=== PATIENT | female | born 1965 | race Caucasian/White ===

== ENCOUNTER 2017-07-27 20:04 | Emergency (ER) | payer OTHER ==
[~2017-07-27] VITALS: Ht 170.2 cm; Wt 80.3 kg
[2017-07-27] MEDS ORDERED: STELARA45 MG/0.1 (20:35)
[2017-07-27] MEDS ORDERED: Keflex500 MG PO (21:14)
== END 2017-07-27 21:21 | disposition home or self-care (01) ==
LOC: ER 20:04
DX: L03.115 Cellulitis of right lower limb (principal); Z88.5 Allergy status to narcotic agent; Z88.8 Allergy status to other drugs, medicaments and biological substances; Z90.710 Acquired absence of both cervix and uterus
CPT/HCPCS: 99283

== ENCOUNTER → 2021-04-29 | Outpatient (CLI) | payer OTHER ==
[~2021-04-29] MED LIST: Keflex500 MG PO; STELARA45 MG/0.1
== END ==
LOC: LAB SHORT 16:00
DX: J02.9 Acute pharyngitis, unspecified (principal); Z88.6 Allergy status to analgesic agent; Z88.8 Allergy status to other drugs, medicaments and biological substances
CPT/HCPCS: 87081

== ENCOUNTER → 2021-07-01 | Outpatient (CLI) | payer OTHER ==
[~2021-07-01] MED LIST changes: +CYCL10 PO; +Percocet 5-3251 EACH PO; +TALTZ SYRI80 MG/1 ML
[2021-07-02 09:38] LABS: Candida species (DNA Probe) Negative (NEGATIVE); G. vaginalis (DNA Probe) Negative (NEGATIVE); T. vaginalis (DNA Probe) Negative (NEGATIVE)
== END ==
LOC: LAB SHORT 17:19
PROVIDERS: Physician Assistant
DX: R30.0 Dysuria (principal)
CPT/HCPCS: 87086; 87147; 87480; 87510; 87660

== ENCOUNTER 2021-07-20 19:19 | Emergency (ER) | payer OTHER ==
[~2021-07-20] VITALS: Ht 170.2 cm; Wt 80.7 kg
[~2021-07-20 19:19] MED LIST changes: -CYCL10 PO; -Percocet 5-3251 EACH PO; -TALTZ SYRI80 MG/1 ML
[2021-07-20 20:08] LABS: Source, Urine Clean Catch
[2021-07-20 20:27] LABS: Bilirubin, Urine Neg (Neg); Blood, Urine 1+ (Neg); Glucose Qualitative, Urine Neg (Neg); Ketones, Urine Neg (Neg); Leukocyte Esterase, Urine 1+ (Neg); Nitrite, Urine Neg (Neg); Protein, Urine 1+ (Neg); Urobilinogen, Urine NORM (Normal)
[2021-07-20 21:10] LABS: Appearance, Urine Clear (Clear); Color, Urine Yellow (P-Yellow)
[2021-07-20 21:14] LABS: Calcium Oxalate Crystals Many /hpf; Hyaline Casts 0-2 /lpf (0-2)
[2021-07-20 21:15] LABS: Bacteria Mod /hpf; Mucus Light (0-Heavy); Red Blood Cells, Urine 0-2 /hpf (0-2); Squamous Epithelial Cells Few /hpf (Few); White Blood Cells, Urine 0-2 /hpf (0-5)
[2021-07-20] MEDS ORDERED: TALTZ SYRI80 MG/1 ML (21:21)
[2021-07-20] MEDS ORDERED: CYCL10 PO (22:51)
[2021-07-20] MEDS ORDERED: Percocet 5-3251 EACH PO (22:51)
== END 2021-07-20 22:55 | disposition home or self-care (01) ==
LOC: ER 19:19
PROVIDERS: Physician Assistant
DX: M54.50 Low back pain, unspecified (principal)
CPT/HCPCS: 81001; 87086; 99283; A9270

== ENCOUNTER → 2022-07-26 | Outpatient (CLI) | payer OTHER ==
[~2022-07-26] MED LIST changes: +CYCL10 PO; +Percocet 5-3251 EACH PO; +TALTZ SYRI80 MG/1 ML
== END | disposition home or self-care (01) ==
LOC: LAB SHORT 10:40 → LAB 10:40
DX: N39.0 Urinary tract infection, site not specified (principal)
CPT/HCPCS: 87086

== ENCOUNTER → 2022-09-14 | Outpatient (CLI) | payer OTHER ==
[2022-09-14 10:37] LABS: Adenovirus F 40/41 Not Detected (NOT DETECT); Astrovirus Not Detected (NOT DETECT); Campylobacter Sp Detected (NOT DETECT); Cryptosporidium Not Detected (NOT DETECT); Cyclospora Cayetanensis Not Detected (NOT DETECT); E. Coli O157 Not Detected (NOT DETECT); Entamoeba Histolytica Not Detected (NOT DETECT); Enteroaggregative E. coli-EAEC Not Detected (NOT DETECT); Enteropathogenic E. coli-EPEC Not Detected (NOT DETECT); Enterotoxigenic E. coli-ETEC Not Detected (NOT DETECT); Giardia Lamblia Not Detected (NOT DETECT); Norovirus GI/GII Not Detected (NOT DETECT); Plesiomonas Shigelloides Not Detected (NOT DETECT); Rotavirus A Not Detected (NOT DETECT); Salmonella Sp Not Detected (NOT DETECT); Sapovirus Not Detected (NOT DETECT); Shiga Toxin-prod E. coli-STEC Not Detected (NOT DETECT); Shigella/Enteroin E. coli-EIEC Not Detected (NOT DETECT); Vibrio Cholerae Not Detected (NOT DETECT); Vibrio Sp Not Detected (NOT DETECT); Yersinia Enterocolitica Not Detected (NOT DETECT)
== END | disposition home or self-care (01) ==
LOC: LAB SHORT 06:55 → LAB 06:55
PROVIDERS: Physician Assistant
DX: G93.32 Myalgic encephalomyelitis/chronic fatigue syndrome (principal); R19.7 Diarrhea, unspecified; R42 Dizziness and giddiness
CPT/HCPCS: 87507

== ENCOUNTER 2025-06-02 00:24 | Emergency (ER) | payer OTHER ==
[~2025-06-02] VITALS: Ht 170.2 cm; Wt 72.6 kg
[2025-06-02 01:28] LABS: BASOPHILS ABSOLUTE AUTO 0.04 K/mm3 (0.00-0.23); BASOPHILS PERCENT AUTO 1 % (0-2); EOSINOPHILS ABSOLUTE AUTO 0.11 K/mm3 (0.00-0.68); EOSINOPHILS PERCENT AUTO 1 % (0-6); Hematocrit 40.9 % (33.0-51.0); Hemoglobin 13.5 g/dL (11.5-16.0); IMMATURE GRAN ABSOLUTE AUTO 0.02 K/mm3 (0.00-0.10); IMMATURE GRAN PERCENT AUTO 0 % (0-1); LYMPHOCYTES ABSOLUTE AUTO 2.49 K/mm3 (0.84-5.20); LYMPHOCYTES PERCENT AUTO 31 % (21-46); MONOCYTES ABSOLUTE AUTO 0.60 K/mm3 (0.16-1.47); MONOCYTES PERCENT AUTO 8 % (4-13); Mean Corpuscular HGB Conc 33.0 g/dL (31.5-36.5); Mean Corpuscular Volume 92 fL (80-100); NEUTROPHILS ABSOLUTE AUTO 4.69 K/mm3 (1.96-9.15); NEUTROPHILS PERCENT AUTO 59 % (41-73); NRBC ABSOLUTE 0.00 K/mm3 (0.00-0.02); NRBC Auto 0.0 /100 WBC (0.0-0.2); Platelet Count 258 K/mm3 (150-400); RDW Coefficient Variation 12.4 % (11.7-14.2); RDW Standard Deviation 42.4 fL (35.1-46.3)
[2025-06-02 01:47] LABS: Alanine Aminotransfer (ALT/SGP 22.0 U/L (12-78); Albumin, Blood 3.6 g/dL (3.4-5.0); Albumin/Globulin Ratio 1.0 (0.8-1.8); Anion Gap 8.0 mmol/L (3-11); Aspartate Aminotrans (AST/SGOT 19.0 U/L (12-37); Bilirubin, Total 0.2 mg/dL (0.1-1.0); Blood Urea Nitrogen 19.0 mg/dL (8-24); CO2, Blood 27.0 mmol/L (21-32); Calcium, Blood 9.5 mg/dL (8.5-10.1); Chloride, Blood 105.0 mmol/L (98-108); Creatinine, Blood 0.88 mg/dL (0.40-1.00); Globulin, Blood 3.6 g/dL (2.2-4.0); Glucose, Blood 110.0 mg/dL (70-99); Potassium, Blood 4.1 mmol/L (3.5-5.5); Sodium, Blood 136.0 mmol/L (136-145); Total Protein, Blood 7.2 g/dL (6.4-8.2)
[2025-06-02 04:45] VITALS: BP 145/79
== END 2025-06-02 04:53 | disposition home or self-care (01) ==
LOC: ER 00:24
PROVIDERS: Emergency Medicine
DX: R07.89 Other chest pain (principal); Z88.5 Allergy status to narcotic agent; Z88.8 Allergy status to other drugs, medicaments and biological substances
CPT/HCPCS: 80053; 84484; 85025; 93005; 93010; 99284-25